=== PATIENT | female | born 1995 | race Hispanic/Latino ===

== ENCOUNTER 2017-08-14 15:18 | Inpatient (IN) | payer MEDICAID ==
[2017-08-14] MEDS ORDERED: ZOFRAN IV PRN (16:38)
[2017-08-14] MEDS ORDERED: STADOL IV PRN (16:38)
[2017-08-14] MEDS ORDERED: BRETHINE SUB-Q PRN ×2 (16:38→22:01)
[2017-08-14] MEDS ORDERED: ePHEDrine SULFATE IV PRN ×2 (16:38→22:01)
[2017-08-14] MEDS ORDERED: BRETHINE IVP PRN ×2 (16:38→22:01)
[2017-08-14] MEDS ORDERED: MINERAL OIL PO PRN ×2 (16:38→22:01)
[2017-08-14] MEDS ORDERED: XYLOCAINE 2% INFILTRATI ONE ×2 (16:51→22:01)
[2017-08-14] MEDS ORDERED: PITOCin/NS 20 UNIT/1000ML DRIP 20 UNITS/1,000 ML BAG IV SCH ×2 (17:00→23:00)
[2017-08-14] MEDS ORDERED: LACTATED RINGERS 1,000 ML IV SCH ×2 (17:00→23:00)
[2017-08-14] MEDS ORDERED: PITOCin/NS 30 UNIT/500ML 30 UNITS/500 ML BAG IV SCH ×2 (17:00)
[2017-08-14 18:22] LABS: Hematocrit 35.7 % (30.3-42.9); Hemoglobin 12.2 gm/dl (10.1-14.3); Mean Corpuscular HGB Conc 34 % (30-34); Mean Corpuscular Hemoglobin 30 pg (28-32); Mean Corpuscular Volume 88 fl (79-97); Platelet Count 276 K/mm3 (140-440); Red Blood Count 4.06 M/mm3 (3.65-5.03); Red Cell Distribution Width 14.1 % (13.2-15.2); White Blood Count 11.9 K/mm3 (4.5-11.0)
--- NOTE | 2017-08-14 22:11 | History and Physical Report ---
History of Present Illness Date of examination: 08/14/17 Date of admission: 08/14/17 15:18 Chief complaint: leakage of fluid History of present illness: 21y/o @ 39+5 weeks presents with active leakage of fluid since this am. Patient experiencing irregular contractions. care initiated @ 14 weeks. course complicated STD exposure, low-lying placenta that resolved, and +GBS. Past History Past Medical History: migraines Past Surgical History: no surgical history [employer] History: chlamydia Social history: single - Obstetrical History Expected Date of Delivery: 08/16/17 Actual Gestation: 39 Week(s) 5 Day(s) : 2 Para: 0 Hx # Term Pregnancies: 0 Number of Pregnancies: 0 Spontaneous Abortions: 1 Induced : 0 Number of Living Children: 0 Medications and Allergies Allergies Allergy/AdvReac Type Severity Reaction Status Date / Time No Known Allergies Allergy Verified 03/28/15 09:16 Home Medications Medication Instructions Recorded Confirmed Last Taken Type Pnv No.95/Ferrous Fum/Folic AC 1 tab PO DAILY 08/14/17 08/14/17 1 Day Ago History [ Vitamins Tablet] ~08/13/17 Active Meds: Active Medications Butorphanol Tartrate (Stadol) 2 mg IV Q2H PRN PRN Reason: Pain , Severe (7-10) Last Admin: 08/14/17 20:51 Dose: 2 mg Ephedrine Sulfate (Ephedrine Sulfate) 10 mg IV Q2M PRN PRN Reason: Hypotension Ephedrine Sulfate (Ephedrine Sulfate) 10 mg IV Q2M PRN PRN Reason: Hypotension Lactated Ringer's (Lactated Ringers) 1,000 mls @ 125 mls/hr IV DIRECT LYNDA Last Admin: 08/14/17 17:03 Dose: 125 mls/hr Oxytocin/Sodium Chloride (Pitocin/Ns 20 Unit/1000ml Drip) 20 units in 1,000 mls @ 125 mls/hr IV DIRECT LYNDA Oxytocin/Sodium Chloride (Pitocin/Ns 30 Unit/500ml) 30 units in 500 mls @ 4 mls /hr IV TITR LYNDA PRN Reason: Protocol Last Titration: 08/14/17 18:34 Dose: 8 ml/hr, 8 mls/hr Oxytocin/Sodium Chloride (Pitocin/Ns 30 Unit/500ml) 30 units in 500 mls @ 1 mls /hr IV TITR LYNDA; 1 MILLIUNITS/MIN PRN Reason: Protocol Ampicillin Sodium (Polycillin/Ns 2 Gm/100 Ml) 2 gm in 100 mls @ 100 mls/hr IV ONCE ONE Stop: 08/14/17 23:29 Ampicillin Sodium (Polycillin/Ns 1 Gm/50 Ml) 1 gm in 50 mls @ 100 mls/hr IV Q4HR LYNDA PRN Reason: Protocol Lactated Ringer's (Lactated Ringers) 1,000 mls @ 125 mls/hr IV DIRECT LYNDA Oxytocin/Sodium Chloride (Pitocin/Ns 20 Unit/1000ml Drip) 20 units in 1,000 mls @ 125 mls/hr IV DIRECT LYNDA Lidocaine (Xylocaine 2%) 20 ml INFILTRATI ONCE ONE Stop: 08/14/17 22:02 Mineral Oil (Mineral Oil) 30 ml PO QHS PRN PRN Reason: Constipation Mineral Oil (Mineral Oil) 30 ml PO QHS PRN PRN Reason: Constipation Ondansetron HCl (Zofran) 4 mg IV Q8H PRN PRN Reason: Nausea And Vomiting Terbutaline Sulfate (Brethine) 0.25 mg SUB-Q ONCE PRN PRN Reason: Hyperstimulation/Hypertonicity Terbutaline Sulfate (Brethine) 0.25 mg IVP ONCE PRN PRN Reason: Hyperstimulation/Hypertonicity Terbutaline Sulfate (Brethine) 0.25 mg SUB-Q ONCE PRN PRN Reason: Hyperstimulation/Hypertonicity Terbutaline Sulfate (Brethine) 0.25 mg IVP ONCE PRN PRN Reason: Hyperstimulation/Hypertonicity Review of Systems All systems: negative Genitourinary: leakage of fluid, contractions - Vital Signs Vital signs: Vital Signs Pulse BP 93 H 134/76 08/14/17 16:04 08/14/17 16:04 Temp Pulse Resp BP Pulse Ox 97.5 F L 84 18 132/82 99 08/14/17 20:57 08/14/17 21:38 08/14/17 20:57 08/14/17 21:38 08/14/17 18:35 - Physical Exam Breasts: Positive: deferred Cardiovascular: Regular rate Lungs: Positive: Clear to auscultation Abdomen: Positive: normal appearance Results Result Diagrams: 08/14/17 16:50 Abnormal lab results 08/14/17 Range/Units 16:50 WBC 11.9 H (4.5-11.0) K/mm3 All other labs normal. Assessment and Plan - Patient Problems (1) Spontaneous rupture of amniotic membranes Current Visit: Yes Status: Acute Plan to address problem: admit to L&D
[2017-08-14] MEDS ORDERED: POLYCILLIN/NS 2 GM/100 ML 2 GM/100 ML BAG IV ONE (22:30)
[2017-08-14] MEDS ORDERED: SUBLIMAZE IV ONE (23:01)
[2017-08-14] MEDS ORDERED: SUBLIMAZE ONE (23:03)
--- NOTE | 2017-08-15 01:16 | Procedure Note ---
OB Delivery Note - Delivery Date of Delivery: 08/15/17 Surgeon: MENA MANUEL Estimated blood loss: 200cc - Vaginal Delivery presentation: vertex Delivery position: OA Intrapartum events: none Delivery augmentation: pitocin Delivery monitor: external FHT Route of delivery: Delivery placenta: spontaneous Episiotomy: none Delivery laceration: 2nd degree Delivery repair: vicryl Anesthesia: local Delivery comments: Patient progressed to C/C/+1 and pushed to deliver a liveborn female with apgars of 8/9 weight of 8lbs 1oz. After delivery of the head, the shoulders delivered easily. The cord was clamped and cut x 2 and placed on the warmer. The placenta delivered spontaneously intact with a 3VC. The patient sustained a midline 2nd degree laceration repaired with 2-0 vicryl and injected with lidocaine. EBL 200ml - Infant A at 1 minute: 8 at 5 minutes: 9 Infant Gender: Female (weight 8lbs 1oz)
[2017-08-15] MEDS ORDERED: TUCKS PAD TP PRN (01:18)
[2017-08-15] MEDS ORDERED: PHENERGAN PR PRN (01:18)
[2017-08-15] MEDS ORDERED: BENADRYL PO PRN (01:18)
[2017-08-15] MEDS ORDERED: PHENERGAN PO PRN (01:18)
[2017-08-15] MEDS ORDERED: TYLENOL PO PRN (01:18)
[2017-08-15] MEDS ORDERED: ZOFRAN IV PRN (01:18)
[2017-08-15] MEDS ORDERED: PERCOCET 5/325 PO PRN (01:18)
[2017-08-15] MEDS ORDERED: MILK OF MAGNESIA PO PRN (01:18)
[2017-08-15] MEDS ORDERED: DULCOLAX PR PRN (01:18)
[2017-08-15] MEDS ORDERED: LANSINOH TP PRN (01:18)
[2017-08-15] MEDS ORDERED: SODIUM CHLORIDE FLUSH SYRINGE 10 ML IV NR (02:00)
[2017-08-15] MEDS ORDERED: POLYCILLIN/NS 1 GM/50 ML 1 GM/50 ML BAG IV SCH (02:02)
[2017-08-15] MEDS: MOTRIN PO SCH ×3 (05:34→23:36)
[2017-08-15 05:50] LABS: Hematocrit 31.9 % (30.3-42.9)
[2017-08-16] MEDS: MOTRIN PO SCH ×2 (05:30→12:12)
[2017-08-16] MEDS ORDERED: BOOSTRIX IM ONE (06:00)
--- NOTE | 2017-08-16 09:29 | Progress Note ---
Assessment and Plan O: VSS AF PP H/H: 11.0/31.9 A: Stable PP Day 2 Second Degree Laceration P: D/c home Subjective - Subjective Date of service: 08/16/17 Patient reports: appetite normal, voiding normally, pain well controlled, flatus , ambulating normally : doing well Objective - Vital Signs Latest vital signs: Vital Signs Temp Pulse Resp BP BP Pulse Ox 08/16/17 00:00 98.6 F 77 18 121/78 08/15/17 16:19 98.5 F 118 H 20 134/87 93 08/15/17 12:23 98.6 F 105 H 20 131/74 96 Intake and Output 08/15/17 08/16/17 08/16/17 22:59 06:59 14:59 Intake Total 240 600 Balance 240 600 Intake: Oral 240 Intake, Free Water 600 Other: Total, Intake Amount 240 # Voids Void 1 - Exam Breasts: Present: deferred Abdomen: Present: normal appearance, soft, normal bowel sounds. Absent: distention, tenderness Vulva: both: normal Uterus: Present: normal, firm, fundal height below umbilicus. Absent: bogginess , tenderness Extremities: Present: normal
--- NOTE | 2017-08-16 09:32 | Discharge Summary ---
Providers - Providers Date of Admission: 08/14/17 15:18 Date of discharge: 08/16/17 Attending physician: MENA MANUEL Primary care physician: MENA MANUEL Hospitalization Reason for admission: active labor, IUP at term Delivery: Episiotomy: none Laceration: 2nd degree Other procedures: none complications: none Discharge diagnosis: IUP at term delivered baby: female Condition at discharge: Good Disposition: DC-01 TO HOME OR SELFCARE Plan - Discharge Medications Prescriptions: Acetaminophen with Codeine [Acetaminophen-Codeine #4 TAB] 1 tab PO Q6HR #30 tab Ibuprofen [Motrin 600 MG tab] 600 mg PO Q6H PRN #30 tablet PRN Reason: pain - Provider Discharge Summary Activity: routine, no sex for 6 weeks, no heavy lifting 4 weeks, no strenuous exercise Diet: routine Instructions: routine Additional instructions: [] Smoking cessation referral if applicable(refer to patient education folder for contact #) [] Refer to [facility]'s [facility] Booklet Call your doctor immediately for: * Fever > 100.5 * Heavy vaginal bleeding ( >1 pad per hour) * Severe persistent headache * Shortness of breath * Reddened, hot, painful area to leg or breast * Drainage or odor from incision. * Keep incision clean and dry at all times and follow doctor's instructions regarding bathing/showering - Follow up plan Follow up: MENA MANUEL MD [Primary Care Provider] - EVELYNE MELENDEZ MD [Staff Physician] - (RTO 4 week ) Forms: [facility] Discharge Summary
[2017-08-16 09:53] VITALS: BP 120/79
--- NOTE | 2017-08-16 10:08 | Progress Note ---
Assessment and Plan O: VSS AF PP H/H: 11.0/31.9 A: Stable PP Day 1 P: D/C home Subjective - Subjective Date of service: 08/16/17 Patient reports: appetite normal, voiding normally, pain well controlled, ambulating normally : doing well Objective - Vital Signs Latest vital signs: Vital Signs Temp Pulse Resp BP BP Pulse Ox 08/16/17 08:34 97.7 F 87 18 120/79 97 08/16/17 00:00 98.6 F 77 18 121/78 08/15/17 16:19 98.5 F 118 H 20 134/87 93 08/15/17 12:23 98.6 F 105 H 20 131/74 96 Intake and Output 08/15/17 08/16/17 08/16/17 22:59 06:59 14:59 Intake Total 240 600 Balance 240 600 Intake: Oral 240 Intake, Free Water 600 Other: Total, Intake Amount 240 # Voids Void 1 - Exam Breasts: Present: deferred Lungs: Present: Normal air movement Abdomen: Present: normal appearance, soft Vulva: both: normal Uterus: Present: normal, firm, fundal height below umbilicus
--- NOTE | 2017-08-16 10:09 | Discharge Summary ---
Providers - Providers Date of Admission: 08/14/17 15:18 Date of discharge: 08/16/17 Attending physician: MENA MANUEL Primary care physician: MENA MANUEL Hospitalization Reason for admission: active labor, rupture of membranes, IUP at term Delivery: Episiotomy: none Laceration: 2nd degree Discharge diagnosis: IUP at term delivered baby: female Condition at discharge: Good Disposition: DC-01 TO HOME OR SELFCARE Plan - Discharge Medications Prescriptions: Acetaminophen with Codeine [Acetaminophen-Codeine #4 TAB] 1 tab PO Q6HR #30 tab Ibuprofen [Motrin 600 MG tab] 600 mg PO Q6H PRN #30 tablet PRN Reason: pain - Provider Discharge Summary Activity: routine, no sex for 6 weeks, no heavy lifting 4 weeks, no strenuous exercise Diet: routine Instructions: routine Additional instructions: [] Smoking cessation referral if applicable(refer to patient education folder for contact #) [] Refer to [facility]'s [facility] Booklet Call your doctor immediately for: * Fever > 100.5 * Heavy vaginal bleeding ( >1 pad per hour) * Severe persistent headache * Shortness of breath * Reddened, hot, painful area to leg or breast * Drainage or odor from incision. * Keep incision clean and dry at all times and follow doctor's instructions regarding bathing/showering - Follow up plan Follow up: MENA MANUEL MD [Primary Care Provider] - EVELYNE MELENDEZ MD [Staff Physician] - (RTO 4 week ) Forms: [facility] Discharge Summary
== END 2017-08-15 20:15 | disposition home or self-care (01) | DRG 775 ==
LOC: LD 15:18 → OB 08-15 03:05
PROVIDERS: ADMIT Obstetrics & Gynecology; ATTEND Obstetrics & Gynecology
PROC: 10E0XZZ Delivery of Products of Conception, External Approach (ICD-10-PCS; principal; 2017-08-15)
PROC: 0KQM0ZZ Repair Perineum Muscle, Open Approach (ICD-10-PCS; 2017-08-15)
PROC: 3E0234Z Introduction of Serum, Toxoid and Vaccine into Muscle, Percutaneous Approach (ICD-10-PCS; 2017-08-15)
DX: O99.824 Streptococcus B carrier state complicating childbirth (principal); O99.354 Diseases of the nervous system complicating childbirth; O70.1 Second degree perineal laceration during delivery; Z3A.39 39 weeks gestation of pregnancy; Z37.0 Single live birth; G43.909 Migraine, unspecified, not intractable, without status migrainosus; Z23 Encounter for immunization
CPT/HCPCS: 36415; 85014; 85018; 85027; 86592; 86850; 86900; 86901; 90471; 90715; J0290; J0595; J2590; J3010; J7120